=== PATIENT | male | born 1970 | race Caucasian/White ===

== ENCOUNTER 2017-01-20 09:44 | Emergency (ER) | payer BC ==
[2017-01-20] MEDS ORDERED: Aspirin Low Dose CHEW TAB* 81 MG PO ONE (09:54)
[2017-01-20] MEDS ORDERED: NS 0.9% 1000 ML* 2,000 ML IV ONE (10:21)
[2017-01-20 10:27] LABS: Hematocrit 46 % (42-52); Hemoglobin 15.3 g/dl (14.0-18.0); Mean Corpuscular HGB Conc 33 g/dl (31-36); Mean Corpuscular Hemoglobin 28 pg (27-31); Mean Corpuscular Volume 85 fL (80-94); Mean Platelet Volume 8 um3 (7.4-10.4); Red Blood Count 5.42 10^6/ul (4.0-5.4); Red Cell Distribution Width 13 % (10.5-15); White Blood Count 7.7 10^3/ul (3.5-10.8)
[2017-01-20 10:53] LABS: Albumin 4.4 g/dL (3.2-5.2); BUN/Creatinine Ratio 18.6 (8-20); Calcium 9.1 mg/dL (8.6-10.3); EGFR African American 106.7 (>60); Magnesium 2.1 mg/dL (1.9-2.7); Total Bilirubin 0.6 mg/dL (0.2-1.0); Total Protein 7.4 g/dL (6.4-8.9)
[2017-01-20 11:19] LABS: Urine Bilirubin Negative (Negative); Urine Glucose Negative (Negative); Urine Nitrite Negative (Negative)
[2017-01-20 11:26] LABS: TSH (Thyroid Stimulating Horm) 0.91 mcIU/mL (0.34-5.60)
--- NOTE | 2017-01-20 11:28 | RAD ---
Indication: Headaches, intracranial hemorrhage. CT of the brain was performed without IV contrast. Ventricular structures are midline. No midline shift is noted. The extra-axial spaces are unremarkable. There is no evidence of intracranial mass or hemorrhage. No other high or low density lesions are identified. Mastoid air cells and paranasal sinuses are unremarkable. IMPRESSION: No intracranial mass or hemorrhage is noted.
--- NOTE | 2017-01-20 12:06 | RAD ---
Indication: Chest pain. 2 views of the chest including dual energy PA views demonstrate no mediastinal shift. Heart is of normal size and configuration. Lung montanez demonstrate no pleural fluid, pneumonia or pneumothorax. IMPRESSION: No active cardiopulmonary disease is noted.
[2017-01-20 14:08] VITALS: BP 117/75
--- NOTE | 2017-01-20 14:20 | ED ---
Anna Clark Salem, scribed for Ever Dodge MD on 01/20/17 at 1010 . Hypertension - HPI Summary HPI Summary: Patient is a 46 y/o M who presents to the ED with left arm numbness and tingling for the past 2 hours, better since. He reports a headache (pressure), visual disturbance, weakness in lower extremities (but no dragging or staggering ), and high BP (160/104), but denies abd pain, V/D, tinnitus, room spinning sensation, or CP (although he feels pressure in his chest with deep breaths). He also reports felling lightheaded and off at work. He states that he had a cold 1.5 weeks ago. BP was 150/84 upon examination. - History of Current Complaint Chief Complaint: EDHypertension Stated Complaint: CHEST PRESSURE,DIZZINESS Time Seen by Provider: 01/20/17 09:57 Hx Obtained From: Patient Onset/Duration: Started Hours Ago, Atraumatic, Still Present Timing: Constant Reported Blood Pressure Prior To Arrival: 160/104 Aggravating Factor(s): Nothing Alleviating Factor(s): Nothing Associated Signs & Symptoms: Vision Changes, Headaches, Numbness, Tingling, Weakness - Allergies/Home Medications Allergies/Adverse Reactions: Allergies Allergy/AdvReac Type Severity Reaction Status Date / Time No Known Allergies Allergy Verified 01/20/17 09:49 PMH/Surg Hx/FS Hx/Imm Hx Previously Healthy: Yes Endocrine/Hematology History: Denies: Hx Diabetes, Hx Thyroid Disease Cardiovascular History: Denies: Hx Hypertension Respiratory History: Denies: Hx Asthma, Hx Chronic Obstructive Pulmonary Disease (COPD) GI History: Denies: Hx Ulcer Infectious Disease History: No Infectious Disease History: Denies: Hx Hepatitis, Hx Human Immunodeficiency Virus (HIV), Traveled Outside the [place] in Last 30 Days - Family History Known Family History: Positive: Cardiac Disease, Diabetes, Other - Migraines. - Social History Alcohol Use: Rare Hx Substance Use: No Substance Use Type: Reports: None Hx Tobacco Use: No Smoking Status (MU): Never Smoked Tobacco Review of Systems Positive: Other - Feels "off." Positive: Other - Visual disturbance. ENT: Other - No tinnitus. Positive: Other - High BP. . Negative: Chest Pain - Chest pressure. Negative: Abdominal Pain, Vomiting, Diarrhea Positive: Other - No staggering or dragging. Neurological: Other - Lightheadedness. No room spinning sensation. Positive: Weakness, Numbness - and tingling of LUE. All Other Systems Reviewed And Are Negative: Yes Physical Exam - Summary Physical Exam Summary: The patient is well-nourished in no acute distress and in no acute pain. The skin is warm and dry and skin color reflects adequate perfusion. HEENT: The head is normocephalic and atraumatic. The pupils are equal and reactive. The conjunctivae are clear and without drainage. Nares are patent and without drainage. Mouth reveals moist mucous membranes and the throat is without erythema and exudate. The external ears are intact. The ear canals are patent and without drainage. The tympanic membranes are intact. Mild horizontal nystagmus. Mild DMM. Neck is supple with full range of motion and non-tender. There are no carotid bruits. There is no neck vein distension. Respiratory: Chest is non-tender. Lungs are clear to auscultation and breath sounds are symmetrical and equal. Cardiovascular: Hear is regular rate and rhythm. There is no murmur or rub auscultated. There is no peripheral edema and pulses are symmetrical and equal. Abdomen: The abdomen is soft and non-tender. Obese. Musculoskeletal: There is no back pain noted. Extremities are non-tender with full range of motion. There is good capillary refill. There is no peripheral edema or calf tenderness elicited. Neurological: Patient is alert and oriented to person, place and time. The patient has symmetrical motor strength in all four extremities. [id number] and [id number] normal. No pronator shit. Psychiatric: The patient has an appropriate affect and does not exhibit any anxiety or depression. Triage Information Reviewed: Yes Vital Signs On Initial Exam: Initial Vitals Temp Pulse Resp BP Pulse Ox 98.5 F 86 16 153/93 98 01/20/17 09:49 01/20/17 09:49 01/20/17 09:49 01/20/17 09:49 01/20/17 09:49 Vital Signs Reviewed: Yes Diagnostics - Vital Signs Vital Signs Temp Pulse Resp BP Pulse Ox 01/20/17 09:56 98.5 F 86 16 153/93 100 01/20/17 09:49 98.5 F 86 16 153/93 98 - Laboratory Lab Results: Lab Results 01/20/17 01/20/17 01/20/17 Range/Units 10:19 10:19 10:19 WBC 7.7 (3.5-10.8) 10^3/ul RBC 5.42 H (4.0-5.4) 10^6/ul Hgb 15.3 (14.0-18.0) g/dl Hct 46 (42-52) % MCV 85 (80-94) fL MCH 28 (27-31) pg MCHC 33 (31-36) g/dl RDW 13 (10.5-15) % Plt Count 241 (150-450) 10^3/ul MPV 8 (7.4-10.4) um3 Neut % (Auto) 70.2 (38-83) % Lymph % (Auto) 19.5 L (25-47) % [place] % (Auto) 9.0 (1-9) % Eos % (Auto) 0.9 (0-6) % Baso % (Auto) 0.4 (0-2) % Absolute Neuts (auto) 5.4 (1.5-7.7) 10^3/ul Absolute Lymphs (auto) 1.5 (1.0-4.8) 10^3/ul Absolute Monos (auto) 0.7 (0-0.8) 10^3/ul Absolute Eos (auto) 0.1 (0-0.6) 10^3/ul Absolute Basos (auto) 0 (0-0.2) 10^3/ul Absolute Nucleated RBC 0 10^3/ul Nucleated RBC % 0 INR (Anticoag Therapy) (0.89-1.11) Sodium 136 (133-145) mmol/L Potassium 4.0 (3.5-5.0) mmol/L Chloride 102 (101-111) mmol/L Carbon Dioxide 25 (22-32) mmol/L Anion Gap 9 (2-11) mmol/L BUN 18 (6-24) mg/dL Creatinine 0.97 (0.67-1.17) mg/dL Est GFR ( Amer) 106.7 (>60) Est GFR (Non-Af Amer) 83.0 (>60) BUN/Creatinine Ratio 18.6 (8-20) Glucose 106 H (70-100) mg/dL Lactic Acid 1.7 (0.5-2.0) mmol/L Calcium 9.1 (8.6-10.3) mg/dL Magnesium 2.1 (1.9-2.7) mg/dL Total Bilirubin 0.60 (0.2-1.0) mg/dL AST 19 (13-39) U/L ALT 22 (7-52) U/L Alkaline Phosphatase 57 (34-104) U/L Troponin I 0.00 (<0.04) ng/mL B-Natriuretic Peptide ( - 100) pg/mL Total Protein 7.4 (6.4-8.9) g/dL Albumin 4.4 (3.2-5.2) g/dL Globulin 3.0 (2-4) g/dL Albumin/Globulin Ratio 1.5 (1-3) TSH 0.91 (0.34-5.60) mcIU/mL Urine Color Urine Appearance Urine pH (5-9) Ur Specific Morton (1.010-1.030) Urine Protein (Negative) Urine Ketones (Negative) Urine Blood (Negative) Urine Nitrate (Negative) Urine Bilirubin (Negative) Urine Urobilinogen (Negative) Ur Leukocyte Esterase (Negative) Urine Glucose (Negative) 01/20/17 01/20/17 01/20/17 Range/Units 10:19 10:19 11:03 WBC (3.5-10.8) 10^3/ul RBC (4.0-5.4) 10^6/ul Hgb (14.0-18.0) g/dl Hct (42-52) % MCV (80-94) fL MCH (27-31) pg MCHC (31-36) g/dl RDW (10.5-15) % Plt Count (150-450) 10^3/ul MPV (7.4-10.4) um3 Neut % (Auto) (38-83) % Lymph % (Auto) (25-47) % Vinton % (Auto) (1-9) % Eos % (Auto) (0-6) % Baso % (Auto) (0-2) % Absolute Neuts (auto) (1.5-7.7) 10^3/ul Absolute Lymphs (auto) (1.0-4.8) 10^3/ul Absolute Monos (auto) (0-0.8) 10^3/ul Absolute Eos (auto) (0-0.6) 10^3/ul Absolute Basos (auto) (0-0.2) 10^3/ul Absolute Nucleated RBC 10^3/ul Nucleated RBC % INR (Anticoag Therapy) 0.90 (0.89-1.11) Sodium (133-145) mmol/L Potassium (3.5-5.0) mmol/L Chloride (101-111) mmol/L Carbon Dioxide (22-32) mmol/L Anion Gap (2-11) mmol/L BUN (6-24) mg/dL Creatinine (0.67-1.17) mg/dL Est GFR ( Amer) (>60) Est GFR (Non-Af Amer) (>60) BUN/Creatinine Ratio (8-20) Glucose (70-100) mg/dL Lactic Acid (0.5-2.0) mmol/L Calcium (8.6-10.3) mg/dL Magnesium (1.9-2.7) mg/dL Total Bilirubin (0.2-1.0) mg/dL AST (13-39) U/L ALT (7-52) U/L Alkaline Phosphatase (34-104) U/L Troponin I (<0.04) ng/mL B-Natriuretic Peptide 18 ( - 100) pg/mL Total Protein (6.4-8.9) g/dL Albumin (3.2-5.2) g/dL Globulin (2-4) g/dL Albumin/Globulin Ratio (1-3) TSH (0.34-5.60) mcIU/mL Urine Color Yellow Urine Appearance Clear Urine pH 6.0 (5-9) Ur Specific Morton 1.018 (1.010-1.030) Urine Protein Negative (Negative) Urine Ketones Negative (Negative) Urine Blood Negative (Negative) Urine Nitrate Negative (Negative) Urine Bilirubin Negative (Negative) Urine Urobilinogen Negative (Negative) Ur Leukocyte Esterase Negative (Negative) Urine Glucose Negative (Negative) Result Diagrams: 01/20/17 10:19 01/20/17 10:19 Lab Statement: Any lab studies that have been ordered have been reviewed, and results considered in the medical decision making process. - Radiology CXR Radiology Interpretation Completed By: Radiologist - IMPRESSION: No active cardiopulmonary disease is noted. - CT BRAIN CT Interpretation Completed By: Radiologist - IMPRESSION: No intracranial mass or hemorrhage is noted. - EKG 1021 EKG Interpretation: NSR @ 81 bpm. PRWP. Re-Evaluation - Re-Evaluation First Eval Re-Evaluation Time: 13:39 Comment: Discussed plan. Hypertension Course/Dx - Course Course Of Treatment: 46 y/o M presents with left arm numbness and tingling for the past 2 hours, better since. He reports a headache (pressure), visual disturbance, weakness in lower extremities (but no dragging or staggering), and high BP (160/104), but denies abd pain, V/D, tinnitus, room spinning sensation, or CP (although he feels pressure in his chest with deep breaths). Pt received ASA and fluids in ED course. CXR was negative. CT shows, per radiology, IMPRESSION: No intracranial mass or hemorrhage is noted. Pt will be DC'd with instructions to follow up with Dr. Medrano. - Diagnoses Differential Diagnosis/HQI PQRI: Angina, Hypertension, Other - dehydration, chest pain, Provider Diagnoses: Dehydration, Lightheadedness, Chest pain, Hypertension Discharge - Discharge Plan Condition: Stable Disposition: HOME Patient Education Materials: Dehydration (ED), Lightheadedness (ED), Chest Pain (ED) Referrals: Amadeo Medrano MD [Medical Doctor] - Additional Instructions: Please monitor blood pressure as outpatient. Follow up with Dr. Medrano for cardiac workup. The documentation as recorded by the Anna adorno Salem accurately reflects the service I personally performed and the decisions made by me, Ever Dodge MD.
== END 2017-01-20 14:08 | disposition home or self-care (01) ==
LOC: ED 09:44
DX: R07.9 Chest pain, unspecified (principal); R04.2 Hemoptysis; I10 Essential (primary) hypertension; R51 Headache; R20.0 Anesthesia of skin; R53.1 Weakness; E86.0 Dehydration
CPT/HCPCS: 36415; 70450; 71020; 80053; 81003; 83605; 83735; 83880; 84443; 84484; 85025; 85610; 93005; 99283; A9270-GY